=== PATIENT | male | born 1990 | race Caucasian/White ===

== ENCOUNTER 2023-04-21 20:58 | Emergency (ER) | payer MEDICARE, MEDICAID ==
[~2023-04-21] VITALS: Ht 180.3 cm; Wt 91.0 kg
[2023-04-21] MEDS ORDERED: IBUPROFEN 600MG TABLET PO STA (22:02)
[2023-04-21 23:06] LABS: BASOPHILS % 0.4 % (0.0-2.0); HEMATOCRIT. 40.1 % (42.0-52.0); HEMOGLOBIN. 13.1 g/dL (14.0-18.0); MEAN CORPUSCULAR HEMOGLOBIN 27.2 pg (28.0-32.0); MEAN CORPUSCULAR VOLUME 83.2 fL (80.0-94.0); MEAN PLATELET VOLUME 7.6 fl (7.4-10.4); MONOCYTES % 7.4 % (2.0-8.0); NEUTROPHILS % 56.2 % (40.0-76.0); PLATELET 322 x1000/uL (130-400); RED BLOOD CELL COUNT 4.82 mill/uL (4.7-6.1); RED CELL DISTRIBUTION WIDTH 14.4 % (11.6-14.6)
[2023-04-21 23:11] LABS: CHLORIDE 109 mEq/L (98-107)
[2023-04-21 23:16] LABS: PROTHROMBIN TIME 10.5 sec (9.6-11.0)
[2023-04-22 05:00] VITALS: BP 120/80
== END 2023-04-22 05:35 | disposition home or self-care (01) ==
LOC: ER 20:58
DX: R07.89 Other chest pain (principal); R11.10 Vomiting, unspecified; F20.9 Schizophrenia, unspecified
CPT/HCPCS: 36415; 71045; 74176; 80053; 84484; 85025; 93005; 99285

== ENCOUNTER 2023-05-08 21:40 | Emergency (ER) | payer MEDICARE, MEDICAID ==
[~2023-05-08] VITALS: Ht 180.3 cm; Wt 111.0 kg
[2023-05-08 21:42] VITALS: BP 128/72; PULSE 88; RESP 18; TEMP 98.3; O2SAT 100
== END 2023-05-08 23:29 | disposition home or self-care (01) ==
LOC: ER 21:40
DX: F32.9 Major depressive disorder, single episode, unspecified (principal); Z86.59 Personal history of other mental and behavioral disorders
CPT/HCPCS: 99283

== ENCOUNTER 2023-05-10 21:07 | Emergency (ER) | payer MEDICARE, MEDICAID ==
[~2023-05-10] VITALS: Ht 180.3 cm; Wt 110.0 kg
[2023-05-10 21:17] VITALS: BP 121/81; PULSE 100; RESP 18; TEMP 98.5; O2SAT 97
[2023-05-10] MEDS ORDERED: NAPR-681 MT (22:22)
== END 2023-05-10 22:33 | disposition home or self-care (01) ==
LOC: ER 21:07
DX: M25.571 Pain in right ankle and joints of right foot (principal); F41.9 Anxiety disorder, unspecified; F32.9 Major depressive disorder, single episode, unspecified; F20.9 Schizophrenia, unspecified
CPT/HCPCS: 73600; 73620; 99284

== ENCOUNTER 2023-05-17 03:06 | Emergency (ER) | payer MEDICARE, MEDICAID ==
[~2023-05-17] VITALS: Ht 172.7 cm; Wt 95.0 kg
[~2023-05-17 03:06] MED LIST: NAPR-681 MT
[2023-05-17 03:10] VITALS: O2SAT 98
[2023-05-17 03:33] LABS: CLARITY URINE CLEAR (CLEAR); COLOR URINE YELLOW (YELLOW); KETONES URINE NEGATIVE (NEGATIVE); LEUKOCYTE ESTERASE URINE NEGATIVE (NEGATIVE); NITRITE URINE NEGATIVE (NEGATIVE); OCCULT BLOOD URINE NEGATIVE (NEGATIVE); PH URINE 6.5 (4.5-8.0); PROTEIN URINE NEGATIVE (NEGATIVE); SPECIFIC GRAVITY URINE 1.014 (1.005-1.030)
[2023-05-17 03:46] LABS: *AMPHETAMINES SCREEN URINE NEGATIVE (NEGATIVE); *BARBITURATES SCREEN URINE NEGATIVE (NEGATIVE); *BENZODIAZEPINES SCREEN URINE NEGATIVE (NEGATIVE); *COCAINE SCREEN URINE NEGATIVE (NEGATIVE); CANNABINOID URINE SCREEN NEGATIVE (NEGATIVE); METHADONE URINE SCREEN NEGATIVE (NEGATIVE); OPIATES URINE SCREEN NEGATIVE (NEGATIVE); PHENCYCLIDINE URINE SCREEN NEGATIVE (NEGATIVE)
[2023-05-17 03:55] LABS: BASOPHILS % 0.4 % (0.0-2.0); EOSINOPHILS % 5.7 % (0.0-5.0); HEMATOCRIT. 38.5 % (42.0-52.0); HEMOGLOBIN. 12.5 g/dL (14.0-18.0); LYMPHOCYTES % 27.6 % (20.0-50.0); MEAN CORPUSCULAR HEMOGLOBIN 26.9 pg (28.0-32.0); MEAN CORPUSCULAR VOLUME 82.8 fL (80.0-94.0); MEAN PLATELET VOLUME 7.4 fl (7.4-10.4); MONOCYTES % 8.5 % (2.0-8.0); NEUTROPHILS % 57.8 % (40.0-76.0); PLATELET 314 x1000/uL (130-400); RED BLOOD CELL COUNT 4.65 mill/uL (4.7-6.1); RED CELL DISTRIBUTION WIDTH 14.7 % (11.6-14.6)
[2023-05-17 04:06] LABS: CHLORIDE 109 mEq/L (98-107)
[2023-05-17 04:13] LABS: ETHANOL BLOOD < 10 mg/dL (-10)
[2023-05-17 11:50] VITALS: BP 123/60; PULSE 69; RESP 18; TEMP 98.1
== END 2023-05-17 11:59 | disposition home or self-care (01) ==
LOC: ER 03:30
DX: R45.851 Suicidal ideations (principal); Z20.822 Contact with and (suspected) exposure to COVID-19; Z86.59 Personal history of other mental and behavioral disorders
CPT/HCPCS: 80053; 80305; 81003; 80307; 80329; 80320; 85025; 36415; 99285; 87426; C9803; G0480

== ENCOUNTER 2023-05-20 01:23 | Emergency (ER) | payer MEDICARE, MEDICAID ==
[~2023-05-20] VITALS: Ht 172.7 cm; Wt 80.0 kg
[2023-05-20 01:25] VITALS: O2SAT 98
[2023-05-20 04:31] LABS: HEMATOCRIT. 36.6 % (42.0-52.0); HEMOGLOBIN. 12.2 g/dL (14.0-18.0); MEAN CORPUSCULAR HEMOGLOBIN 27.8 pg (28.0-32.0); MEAN CORPUSCULAR VOLUME 83.7 fL (80.0-94.0); MEAN PLATELET VOLUME 7.5 fl (7.4-10.4); PLATELET 274 x1000/uL (130-400); RED BLOOD CELL COUNT 4.37 mill/uL (4.7-6.1); RED CELL DISTRIBUTION WIDTH 14.8 % (11.6-14.6)
[2023-05-20 04:47] LABS: CHLORIDE 109 mEq/L (98-107)
[2023-05-20 04:52] LABS: ETHANOL BLOOD < 10 mg/dL (-10)
[2023-05-20 05:27] LABS: *AMPHETAMINES SCREEN URINE NEGATIVE (NEGATIVE); *BARBITURATES SCREEN URINE NEGATIVE (NEGATIVE); *BENZODIAZEPINES SCREEN URINE NEGATIVE (NEGATIVE); *COCAINE SCREEN URINE NEGATIVE (NEGATIVE); CANNABINOID URINE SCREEN NEGATIVE (NEGATIVE); METHADONE URINE SCREEN NEGATIVE (NEGATIVE); OPIATES URINE SCREEN NEGATIVE (NEGATIVE); PHENCYCLIDINE URINE SCREEN NEGATIVE (NEGATIVE)
[2023-05-20 05:29] LABS: PLATELET ESTIMATE NORMAL
[2023-05-20 19:56] VITALS: BP 121/90; PULSE 78; RESP 18; TEMP 97.9
== END 2023-05-20 20:14 | disposition short-term general hospital (02) ==
LOC: ER 01:27
DX: R45.851 Suicidal ideations (principal); F41.9 Anxiety disorder, unspecified; F31.9 Bipolar disorder, unspecified; F20.9 Schizophrenia, unspecified; Z20.822 Contact with and (suspected) exposure to COVID-19
CPT/HCPCS: 80305; 80048; 80307; 80329; 80320; 85025; 36415; 99285; 87426; C9803; G0480

== ENCOUNTER 2023-05-29 04:37 | Emergency (ER) | payer MEDICARE, MEDICAID ==
[~2023-05-29] VITALS: Ht 170.2 cm; Wt 79.0 kg
[2023-05-29 04:43] VITALS: O2SAT 100
[2023-05-29] MEDS ORDERED: MECLIZINE 12.5MG TABLET PO ONE (05:45)
[2023-05-29] MEDS ORDERED: IBUPROFEN 400MG TABLET PO ONE (05:45)
[2023-05-29 06:11] LABS: HEMATOCRIT 37.4 % (42.0-52.0); HEMOGLOBIN 12.4 g/dL (14.0-18.0); MEAN CORPUSCULAR HEMOGLOBIN 27.6 pg (28.0-32.0); MEAN CORPUSCULAR VOLUME 83.5 fL (80.0-94.0); PLATELET 311 x1000/uL (130-400); RED BLOOD CELL COUNT 4.48 mill/uL (4.7-6.1); RED CELL DISTRIBUTION WIDTH 14.9 % (11.6-14.6)
[2023-05-29 06:32] VITALS: BP 138/72
[2023-05-29 06:36] LABS: CHLORIDE 111 mEq/L (98-107)
[2023-05-29 07:10] VITALS: PULSE 74; RESP 16; TEMP 98.1
== END 2023-05-29 07:10 | disposition home or self-care (01) ==
LOC: ER 04:37
DX: R42 Dizziness and giddiness (principal); Z86.59 Personal history of other mental and behavioral disorders
CPT/HCPCS: 99283; 80053; 85027; 36415; J8597

== ENCOUNTER 2023-05-31 01:47 | Emergency (ER) | payer MEDICARE, MEDICAID ==
[~2023-05-31] VITALS: Ht 177.8 cm; Wt 90.0 kg
[2023-05-31 01:50] VITALS: BP 122/86; O2SAT 100
[2023-05-31 02:47] VITALS: PULSE 86; RESP 16; TEMP 98.5
== END 2023-05-31 02:47 | disposition home or self-care (01) ==
LOC: ER 02:34
DX: Z00.00 Encounter for general adult medical examination without abnormal findings (principal); Z86.59 Personal history of other mental and behavioral disorders
CPT/HCPCS: 99283

== ENCOUNTER 2023-06-14 21:01 | Emergency (ER) | payer MEDICARE, MEDICAID ==
[~2023-06-14] VITALS: Ht 180.3 cm; Wt 115.7 kg
[2023-06-14 21:16] VITALS: O2SAT 99
[2023-06-15] MEDS ORDERED: ACETAMINOPHEN 325MG TABLET PO ONE (01:00)
[2023-06-15 01:40] VITALS: BP 114/67; PULSE 89; RESP 17; TEMP 98.2
== END 2023-06-15 01:41 | disposition home or self-care (01) ==
LOC: ER 21:01
DX: S09.90XA Unspecified injury of head, initial encounter (principal); F41.9 Anxiety disorder, unspecified; F31.9 Bipolar disorder, unspecified; F20.9 Schizophrenia, unspecified; X58.XXXA Exposure to other specified factors, initial encounter; Y93.89 Activity, other specified; Y92.89 Other specified places as the place of occurrence of the external cause; Y99.8 Other external cause status
CPT/HCPCS: 99281

== ENCOUNTER 2023-07-01 17:51 | Emergency (ER) | payer MEDICARE, MEDICAID ==
[~2023-07-01] VITALS: Ht 177.8 cm; Wt 104.0 kg
[2023-07-01 18:38] VITALS: O2SAT 98
[2023-07-01] MEDS ORDERED: ACET-2708 MT (19:19)
[2023-07-01] MEDS ORDERED: ACETAMINOPHEN 325MG TABLET PO ONE (19:30)
[2023-07-01 19:43] VITALS: BP 120/80; PULSE 86; RESP 20; TEMP 98.2
== END 2023-07-01 19:51 | disposition home or self-care (01) ==
LOC: ER 18:26
DX: M25.561 Pain in right knee (principal); F41.9 Anxiety disorder, unspecified; F31.9 Bipolar disorder, unspecified; F20.9 Schizophrenia, unspecified
CPT/HCPCS: 99281; 99282

== ENCOUNTER 2023-07-09 18:06 | Emergency (ER) | payer MEDICARE, MEDICAID ==
[~2023-07-09] VITALS: Ht 180.3 cm; Wt 115.7 kg
[~2023-07-09 18:06] MED LIST changes: +ACET-2708 MT
[2023-07-09 18:45] VITALS: BP 125/87; PULSE 83; RESP 16; TEMP 98.2; O2SAT 98
[2023-07-09] MEDS ORDERED: KETOROLAC 30MG/ML VIAL IM ONE (20:00)
[2023-07-09] MEDS ORDERED: GUAI-824 MT (20:01)
[2023-07-09] MEDS ORDERED: NAPR-681 MT (20:01)
== END 2023-07-09 21:00 | disposition home or self-care (01) ==
LOC: ER 18:06
DX: B34.9 Viral infection, unspecified (principal); L53.9 Erythematous condition, unspecified; F31.9 Bipolar disorder, unspecified; F41.8 Other specified anxiety disorders; F20.9 Schizophrenia, unspecified; Z20.822 Contact with and (suspected) exposure to COVID-19
CPT/HCPCS: 99283; 87426; J1885; C9803

== ENCOUNTER 2023-07-18 23:04 | Emergency (ER) | payer MEDICARE, MEDICAID ==
[~2023-07-18] VITALS: Ht 180.3 cm; Wt 82.0 kg
[~2023-07-18 23:04] MED LIST changes: +GUAI-824 MT
[2023-07-18 23:08] VITALS: O2SAT 95
[2023-07-18] MEDS ORDERED: SODIUM CHLORIDE 0.9% 1,000 ML IV ONE (23:45)
[2023-07-19 00:02] LABS: HEMATOCRIT. 36.6 % (42.0-52.0)
[2023-07-19 00:07] LABS: CHLORIDE 106 mEq/L (98-107); INDEX HEMOLYSI 1 (1-3); INDEX ICTERIC 1 (1-4); INDEX LIPEMIC 1 (1-3); POTASSIUM 4.1 mEq/L (3.5-5.1); SODIUM 140 mEq/L (136-145)
[2023-07-19 00:08] LABS: BASOPHILS % 0.5 % (0.0-2.0); EOSINOPHILS % 7.9 % (0.0-5.0); HEMOGLOBIN. 12.1 g/dL (14.0-18.0); LYMPHOCYTES % 30.4 % (20.0-50.0); MEAN CORPUSCULAR HEMOGLOBIN 27.6 pg (28.0-32.0); MEAN CORPUSCULAR HGB CONC 33.2 g/dL (31.0-37.0); MEAN CORPUSCULAR VOLUME 83.3 fL (80.0-94.0); MEAN PLATELET VOLUME 7.4 fl (7.4-10.4); MONOCYTES % 9.1 % (2.0-8.0); NEUTROPHILS % 52.1 % (40.0-76.0); PLATELET 283 x1000/uL (130-400); RED BLOOD CELL COUNT 4.39 mill/uL (4.7-6.1); RED CELL DISTRIBUTION WIDTH 14.2 % (11.6-14.6); WHITE BLOOD COUNT 10.9 x1000/uL (4.5-11.0)
[2023-07-19 00:15] LABS: ALANINE AMINOTRANSFERASE 35 IU/L (13-61); ALBUMIN 3.7 g/dL (3.4-5.0); ASPARTATE AMINOTRANSFERASE 20 IU/L (15-37); BILIRUBIN TOTAL 0.2 mg/dL (0.1-1.0); CALCIUM 9.2 mg/dL (8.5-10.1); CARBON DIOXIDE 27 mEq/L (21-32); CREATININE 0.9 mg/dL (0.6-1.3); GLUCOSE 102 mg/dL (70-105); PROTEIN TOTAL 7.8 g/dL (6.0-8.3); UREA NITROGEN BLOOD 16 mg/dL (7-21)
[2023-07-19 00:48] LABS: DIFFERENTIAL COMMENT 1
[2023-07-19 01:46] VITALS: BP 122/79; PULSE 89; RESP 20; TEMP 98.3
== END 2023-07-19 01:47 | disposition home or self-care (01) ==
LOC: ER 23:04
DX: R10.9 Unspecified abdominal pain (principal); F41.9 Anxiety disorder, unspecified; F31.9 Bipolar disorder, unspecified; F20.9 Schizophrenia, unspecified
CPT/HCPCS: 99283; 80053; 83690; 85025; 36415; 96360; J7030

== ENCOUNTER 2023-07-23 18:37 | Emergency (ER) | payer MEDICARE, MEDICAID ==
[~2023-07-23] VITALS: Ht 180.3 cm; Wt 108.9 kg
[2023-07-23 19:14] VITALS: BP 129/77; O2SAT 96
[2023-07-23] MEDS ORDERED: ASPIRIN 81MG TABLET PO ONE (21:15)
[2023-07-23 21:32] LABS: BASOPHILS % 0.3 % (0.0-2.0); EOSINOPHILS % 7.4 % (0.0-5.0); HEMATOCRIT. 41.7 % (42.0-52.0); HEMOGLOBIN. 13.8 g/dL (14.0-18.0); LYMPHOCYTES % 22.9 % (20.0-50.0); MEAN CORPUSCULAR HGB CONC 33.2 g/dL (31.0-37.0); MEAN CORPUSCULAR VOLUME 84.3 fL (80.0-94.0); MEAN PLATELET VOLUME 7.3 fl (7.4-10.4); MONOCYTES % 7.6 % (2.0-8.0); NEUTROPHILS % 61.8 % (40.0-76.0); PLATELET 331 x1000/uL (130-400); RED BLOOD CELL COUNT 4.94 mill/uL (4.7-6.1); RED CELL DISTRIBUTION WIDTH 14.1 % (11.6-14.6); WHITE BLOOD COUNT 11.4 x1000/uL (4.5-11.0)
[2023-07-23 21:41] LABS: CHLORIDE 107 mEq/L (98-107); INDEX HEMOLYSI 1 (1-3); INDEX ICTERIC 1 (1-4); INDEX LIPEMIC 1 (1-3); POTASSIUM 4.1 mEq/L (3.5-5.1); SODIUM 139 mEq/L (136-145)
[2023-07-23 21:50] LABS: ALANINE AMINOTRANSFERASE 36 IU/L (13-61); ASPARTATE AMINOTRANSFERASE 18 IU/L (15-37); BILIRUBIN TOTAL 0.2 mg/dL (0.1-1.0); CALCIUM 9.7 mg/dL (8.5-10.1); CARBON DIOXIDE 27 mEq/L (21-32); CREATININE 0.9 mg/dL (0.6-1.3); GLUCOSE 98 mg/dL (70-105); PROTEIN TOTAL 8.7 g/dL (6.0-8.3); TROPONIN I HIGH SENSITIVITY 6 ng/L (<78); UREA NITROGEN BLOOD 13 mg/dL (7-21)
[2023-07-24 00:40] LABS: TROPONIN I HIGH SENSITIVITY 5 ng/L (<78)
[2023-07-24 01:14] VITALS: PULSE 81; RESP 16; TEMP 98.5
== END 2023-07-24 01:15 | disposition home or self-care (01) ==
LOC: ER 18:37
DX: R07.89 Other chest pain (principal); M25.561 Pain in right knee; F41.9 Anxiety disorder, unspecified; F31.9 Bipolar disorder, unspecified; F20.9 Schizophrenia, unspecified
CPT/HCPCS: 36415; 71045; 73560; 80053; 84484; 85025; 85379; 99284

== ENCOUNTER 2023-07-29 19:15 | Emergency (ER) | payer MEDICARE, MEDICAID ==
[~2023-07-29] VITALS: Ht 177.8 cm; Wt 113.1 kg
[2023-07-29 19:25] VITALS: TEMP 98.4; O2SAT 98
[2023-07-29] MEDS ORDERED: IBUP-2029 MT (22:12)
[2023-07-29] MEDS ORDERED: IBUPROFEN 600MG TABLET PO ONE (22:15)
[2023-07-29 22:24] VITALS: BP 134/86; PULSE 98; RESP 18
== END 2023-07-29 22:50 | disposition home or self-care (01) ==
LOC: ER 19:15
DX: M54.2 Cervicalgia (principal); F41.9 Anxiety disorder, unspecified; F31.9 Bipolar disorder, unspecified; F20.9 Schizophrenia, unspecified
CPT/HCPCS: 99282

== ENCOUNTER 2023-08-25 15:35 | Emergency (ER) | payer MEDICARE, MEDICAID ==
[~2023-08-25] VITALS: Ht 182.9 cm; Wt 113.0 kg
[~2023-08-25 15:35] MED LIST changes: +IBUP-2029 MT
[2023-08-25 15:48] VITALS: TEMP 98; O2SAT 96
[2023-08-25 18:21] VITALS: BP 132/75; PULSE 82; RESP 20
[2023-08-25] MEDS ORDERED: IBUPROFEN 600MG TABLET PO STA (18:21)
[2023-08-25] MEDS ORDERED: AMOX1TAB16 MT (18:32)
[2023-08-25] MEDS ORDERED: IBUP-2029 MT (18:32)
[2023-08-26] MEDS ORDERED: TRAM50TA3 MT ×2 (22:06→22:16)
== END 2023-08-25 19:42 | disposition home or self-care (01) ==
LOC: ER 15:35
DX: K04.7 Periapical abscess without sinus (principal); K02.9 Dental caries, unspecified; F31.9 Bipolar disorder, unspecified; F20.9 Schizophrenia, unspecified
CPT/HCPCS: 99283

== ENCOUNTER 2023-08-26 18:12 | Emergency (ER) | payer MEDICARE, MEDICAID ==
[~2023-08-26] VITALS: Ht 180.3 cm; Wt 118.0 kg
[~2023-08-26 18:12] MED LIST changes: +AMOX1TAB16 MT
[2023-08-26 18:57] VITALS: BP 142/94; RESP 18; TEMP 98; O2SAT 97
[2023-08-26 19:06] VITALS: PULSE 70
[2023-08-26] MEDS ORDERED: TRAM50TA3 MT ×2 (22:06→22:16)
[2023-08-26] MEDS ORDERED: TRAMADOL 50MG TABLET PO ONE (22:15)
[2023-08-26] MEDS ORDERED: TRAMADOL 50MG TABLET PO NR (22:30)
== END 2023-08-26 23:01 | disposition home or self-care (01) ==
LOC: ER 18:12
DX: K02.9 Dental caries, unspecified (principal); F20.9 Schizophrenia, unspecified; F31.9 Bipolar disorder, unspecified
CPT/HCPCS: 99283

== ENCOUNTER 2023-09-03 19:01 | Emergency (ER) | payer MEDICARE, MEDICAID ==
[~2023-09-03] VITALS: Ht 180.3 cm; Wt 110.0 kg
[~2023-09-03 19:01] MED LIST changes: +TRAM50TA3 MT
[2023-09-03 19:18] VITALS: BP 125/85; PULSE 96; RESP 18; TEMP 98.2; O2SAT 96
[2023-09-05] MEDS ORDERED: ASPI-740 PO (15:44)
== END 2023-09-04 01:14 | disposition left against medical advice (07) ==
LOC: ER 19:01
DX: R51.9 Headache, unspecified (principal); Z53.21 Procedure and treatment not carried out due to patient leaving prior to being seen by health care provider
CPT/HCPCS: 99281

== ENCOUNTER 2023-09-05 12:34 | Emergency (ER) | payer MEDICARE, MEDICAID ==
[~2023-09-05] VITALS: Ht 180.3 cm; Wt 110.0 kg
[2023-09-05 13:07] VITALS: O2SAT 99
[2023-09-05] MEDS ORDERED: KETOROLAC 30MG/ML VIAL IM ONE (14:45)
[2023-09-05] MEDS ORDERED: ASPI-740 PO (15:44)
[2023-09-05] MEDS ORDERED: KETOROLAC 30MG/ML VIAL IM NR (17:15)
[2023-09-05 18:20] VITALS: BP 130/71; PULSE 88; RESP 18; TEMP 98.2
== END 2023-09-05 18:23 | disposition home or self-care (01) ==
LOC: ER 12:34
DX: R51.9 Headache, unspecified (principal); F41.9 Anxiety disorder, unspecified; F31.9 Bipolar disorder, unspecified; F20.9 Schizophrenia, unspecified
CPT/HCPCS: 99283; 96372; J1885

== ENCOUNTER 2023-09-11 19:38 | Emergency (ER) | payer MEDICARE, MEDICAID ==
[~2023-09-11] VITALS: Ht 177.8 cm; Wt 113.5 kg
[~2023-09-11 19:38] MED LIST changes: +ASPI-740 PO
[2023-09-11 19:51] VITALS: O2SAT 97
[2023-09-11 20:30] VITALS: BP 117/22; PULSE 91; RESP 17; TEMP 98.2
[2023-09-11 20:41] LABS: BASOPHILS % 0.5 % (0.0-2.0); EOSINOPHILS % 4.7 % (0.0-5.0); HEMATOCRIT. 37.7 % (42.0-52.0); HEMOGLOBIN. 12.3 g/dL (14.0-18.0); LYMPHOCYTES % 27.9 % (20.0-50.0); MEAN CORPUSCULAR HEMOGLOBIN 27.6 pg (28.0-32.0); MEAN CORPUSCULAR HGB CONC 32.7 g/dL (31.0-37.0); MEAN CORPUSCULAR VOLUME 84.6 fL (80.0-94.0); MEAN PLATELET VOLUME 7.2 fl (7.4-10.4); MONOCYTES % 8.2 % (2.0-8.0); NEUTROPHILS % 58.7 % (40.0-76.0); PLATELET 309 x1000/uL (130-400); RED BLOOD CELL COUNT 4.46 mill/uL (4.7-6.1); RED CELL DISTRIBUTION WIDTH 13.8 % (11.6-14.6); WHITE BLOOD COUNT 13.9 x1000/uL (4.5-11.0)
[2023-09-11 20:43] LABS: CLARITY URINE CLEAR (CLEAR); COLOR URINE YELLOW (YELLOW); GLUCOSE URINE NEGATIVE (NEGATIVE); KETONES URINE NEGATIVE (NEGATIVE); LEUKOCYTE ESTERASE URINE NEGATIVE (NEGATIVE); NITRITE URINE NEGATIVE (NEGATIVE); OCCULT BLOOD URINE NEGATIVE (NEGATIVE); PROTEIN URINE NEGATIVE (NEGATIVE); SPECIFIC GRAVITY URINE 1.008 (1.005-1.030); UROBILINOGEN URINE 0.2 E.U./dL (0.2-1.0)
[2023-09-11 20:48] LABS: CHLORIDE 109 mEq/L (98-107); INDEX HEMOLYSI 1 (1-3); INDEX ICTERIC 1 (1-4); INDEX LIPEMIC 1 (1-3); POTASSIUM 4.2 mEq/L (3.5-5.1); SODIUM 141 mEq/L (136-145)
[2023-09-11 20:55] LABS: ACETAMINOPHEN <2 ug/mL ug/mL (10-30); ALANINE AMINOTRANSFERASE 26 IU/L (13-61); ALBUMIN 3.7 g/dL (3.4-5.0); ASPARTATE AMINOTRANSFERASE 14 IU/L (15-37); BILIRUBIN TOTAL 0.2 mg/dL (0.1-1.0); CALCIUM 9.3 mg/dL (8.5-10.1); CARBON DIOXIDE 30 mEq/L (21-32); CREATININE 0.9 mg/dL (0.6-1.3); ETHANOL BLOOD < 10 mg/dL (<10); GLUCOSE 97 mg/dL (70-105); UREA NITROGEN BLOOD 14 mg/dL (7-21)
[2023-09-11 20:58] LABS: *AMPHETAMINES SCREEN URINE NEGATIVE (NEGATIVE); *BARBITURATES SCREEN URINE NEGATIVE (NEGATIVE); *BENZODIAZEPINES SCREEN URINE NEGATIVE (NEGATIVE); *COCAINE SCREEN URINE NEGATIVE (NEGATIVE); CANNABINOID URINE SCREEN NEGATIVE (NEGATIVE); ECSTASY MDMA SCREEN URINE NEGATIVE (NEGATIVE); OPIATES URINE SCREEN NEGATIVE (NEGATIVE); PHENCYCLIDINE URINE SCREEN NEGATIVE (NEGATIVE)
== END 2023-09-12 11:49 | disposition home or self-care (01) ==
LOC: ER 21:03
DX: R45.851 Suicidal ideations (principal); Z20.822 Contact with and (suspected) exposure to COVID-19; Z86.59 Personal history of other mental and behavioral disorders; Z79.899 Other long term (current) drug therapy
CPT/HCPCS: 80053; 80305; 81003; 80307; 80329; 80320; 85025; 36415; 99284; 87426; C9803; 99283; G0480

== ENCOUNTER 2023-09-20 14:09 | Emergency (ER) | payer MEDICARE, MEDICAID ==
[~2023-09-20] VITALS: Ht 177.8 cm; Wt 114.0 kg
[2023-09-20 14:20] VITALS: O2SAT 97
[2023-09-20 14:30] VITALS: TEMP 98.6
[2023-09-20] MEDS ORDERED: ACETAMINOPHEN 325MG TABLET PO ONE (14:30)
[2023-09-20 15:32] VITALS: BP 130/84; PULSE 78; RESP 20
== END 2023-09-20 15:32 | disposition home or self-care (01) ==
LOC: ER 14:09
DX: R68.84 Jaw pain (principal); Z86.59 Personal history of other mental and behavioral disorders
CPT/HCPCS: 99282

== ENCOUNTER 2023-10-02 18:08 | Emergency (ER) | payer MEDICARE, MEDICAID ==
[~2023-10-02] VITALS: Ht 175.3 cm; Wt 109.0 kg
[2023-10-02 18:31] VITALS: O2SAT 95
[2023-10-02] MEDS ORDERED: ACETAMINOPHEN 325MG TABLET PO ONE (18:45)
[2023-10-02] MEDS ORDERED: KETOROLAC 60MG/2ML VIAL IM ONE (18:45)
[2023-10-02] MEDS ORDERED: NAPR-681 MT (18:53)
[2023-10-02 19:45] VITALS: BP 131/86
[2023-10-02 19:46] VITALS: PULSE 90; RESP 18; TEMP 98.5
== END 2023-10-02 19:48 | disposition home or self-care (01) ==
LOC: ER 18:08
DX: M25.561 Pain in right knee (principal); M25.571 Pain in right ankle and joints of right foot; F41.9 Anxiety disorder, unspecified; F31.9 Bipolar disorder, unspecified; F20.9 Schizophrenia, unspecified
CPT/HCPCS: 99284; 73560; 73600; 96372; J1885

== ENCOUNTER 2023-11-14 11:08 | Emergency (ER) | payer MEDICARE, MEDICAID ==
[~2023-11-14] VITALS: Ht 180.3 cm; Wt 113.0 kg
[2023-11-14 11:19] VITALS: BP 111/74; RESP 16; TEMP 98.8; O2SAT 99
[2023-11-14 11:20] VITALS: PULSE 88
[2023-11-14 12:54] LABS: CLARITY URINE CLEAR (CLEAR); COLOR URINE YELLOW (YELLOW); GLUCOSE URINE NEGATIVE (NEGATIVE); KETONES URINE NEGATIVE (NEGATIVE); LEUKOCYTE ESTERASE URINE NEGATIVE (NEGATIVE); NITRITE URINE NEGATIVE (NEGATIVE); OCCULT BLOOD URINE NEGATIVE (NEGATIVE); PROTEIN URINE NEGATIVE (NEGATIVE); SPECIFIC GRAVITY URINE 1.012 (1.005-1.030); UROBILINOGEN URINE 0.2 E.U./dL (0.2-1.0)
[2023-11-14 14:16] LABS: *AMPHETAMINES SCREEN URINE NEGATIVE (NEGATIVE); *BARBITURATES SCREEN URINE NEGATIVE (NEGATIVE); *BENZODIAZEPINES SCREEN URINE NEGATIVE (NEGATIVE); *COCAINE SCREEN URINE NEGATIVE (NEGATIVE); CANNABINOID URINE SCREEN NEGATIVE (NEGATIVE); ECSTASY MDMA SCREEN URINE NEGATIVE (NEGATIVE); METHADONE URINE SCREEN Neg (NEGATIVE); OPIATES URINE SCREEN NEGATIVE (NEGATIVE); PHENCYCLIDINE URINE SCREEN NEGATIVE (NEGATIVE)
== END 2023-11-14 20:32 | disposition left against medical advice (07) ==
LOC: ER 11:18
DX: R45.851 Suicidal ideations (principal); Z86.59 Personal history of other mental and behavioral disorders
CPT/HCPCS: 80305; 81003; 99283

== ENCOUNTER 2023-11-14 20:21 | Emergency (ER) | payer MEDICARE, MEDICAID ==
[~2023-11-14] VITALS: Ht 175.3 cm; Wt 114.0 kg
[2023-11-14 20:46] VITALS: O2SAT 100
[2023-11-14 20:52] LABS: BASOPHILS % 0.4 % (0.0-2.0); EOSINOPHILS % 8.3 % (0.0-5.0); HEMATOCRIT. 37.4 % (42.0-52.0); HEMOGLOBIN. 12.7 g/dL (14.0-18.0); LYMPHOCYTES % 31.4 % (20.0-50.0); MEAN CORPUSCULAR HEMOGLOBIN 28.7 pg (28.0-32.0); MEAN CORPUSCULAR HGB CONC 33.9 g/dL (31.0-37.0); MEAN CORPUSCULAR VOLUME 84.6 fL (80.0-94.0); MONOCYTES % 13.9 % (2.0-8.0); PLATELET 275 x1000/uL (130-400); RED BLOOD CELL COUNT 4.42 mill/uL (4.7-6.1); RED CELL DISTRIBUTION WIDTH 13.4 % (11.6-14.6); WHITE BLOOD COUNT 7.7 x1000/uL (4.5-11.0)
[2023-11-14 21:08] LABS: ACETAMINOPHEN < 2 ug/mL (10-30); ALANINE AMINOTRANSFERASE 32 IU/L (10-49); ALBUMIN 4.3 g/dL (3.2-4.8); ASPARTATE AMINOTRANSFERASE 28 IU/L (<34); BILIRUBIN TOTAL 0.2 mg/dL (0.1-1.0); CALCIUM 9.2 mg/dL (8.7-10.4); CARBON DIOXIDE 29 mEq/L (21-32); CHLORIDE 106 mEq/L (98-107); CREATININE 0.9 mg/dL (0.6-1.3); GLUCOSE 94 mg/dL (70-105); POTASSIUM 4.1 mEq/L (3.5-5.1); PROTEIN TOTAL 8.2 g/dL (6.0-8.3); SODIUM 140 mEq/L (136-145); UREA NITROGEN BLOOD 14 mg/dL (9-23)
[2023-11-14 21:12] LABS: ETHANOL BLOOD < 10 mg/dL (<10)
[2023-11-14 21:28] LABS: CLARITY URINE CLEAR (CLEAR); COLOR URINE YELLOW (YELLOW); GLUCOSE URINE NEGATIVE (NEGATIVE); KETONES URINE NEGATIVE (NEGATIVE); LEUKOCYTE ESTERASE URINE NEGATIVE (NEGATIVE); NITRITE URINE NEGATIVE (NEGATIVE); OCCULT BLOOD URINE NEGATIVE (NEGATIVE); PROTEIN URINE NEGATIVE (NEGATIVE); SPECIFIC GRAVITY URINE 1.012 (1.005-1.030); UROBILINOGEN URINE 0.2 E.U./dL (0.2-1.0)
[2023-11-14 21:38] LABS: *AMPHETAMINES SCREEN URINE NEGATIVE (NEGATIVE); *BARBITURATES SCREEN URINE NEGATIVE (NEGATIVE); *BENZODIAZEPINES SCREEN URINE NEGATIVE (NEGATIVE); *COCAINE SCREEN URINE NEGATIVE (NEGATIVE); CANNABINOID URINE SCREEN NEGATIVE (NEGATIVE); ECSTASY MDMA SCREEN URINE NEGATIVE (NEGATIVE); METHADONE URINE SCREEN Neg (NEGATIVE); OPIATES URINE SCREEN NEGATIVE (NEGATIVE); PHENCYCLIDINE URINE SCREEN NEGATIVE (NEGATIVE)
[2023-11-15] MEDS ORDERED: QUETIAPINE FUMARATE 50MG TABLET PO SCH (09:45)
[2023-11-15 14:43] VITALS: BP 111/94; PULSE 81; RESP 18; TEMP 98.4
== END 2023-11-15 14:39 ==
LOC: ER 20:21
DX: R45.851 Suicidal ideations (principal); Z86.59 Personal history of other mental and behavioral disorders; Z20.822 Contact with and (suspected) exposure to COVID-19
CPT/HCPCS: 80053; 80305; 81003; 80307; 80329; 80320; 85025; 36415; 99285; 87426; C9803; G0480

== ENCOUNTER 2024-04-22 21:22 | Emergency (ER) | payer MEDICARE, MEDICAID ==
[~2024-04-22] VITALS: Ht 180.3 cm; Wt 114.0 kg
[2024-04-22 22:14] VITALS: O2SAT 96
[2024-04-23 00:13] VITALS: BP 123/85; PULSE 82; RESP 16; TEMP 98.4
== END 2024-04-23 00:16 | disposition home or self-care (01) ==
LOC: ER 21:22
DX: H61.21 Impacted cerumen, right ear (principal)
CPT/HCPCS: 69210; 99282; 99284

== ENCOUNTER 2024-06-12 18:14 | Emergency (ER) | payer MEDICARE, MEDICAID ==
[~2024-06-12] VITALS: Ht 180.3 cm; Wt 97.0 kg
[2024-06-12 18:24] VITALS: TEMP 98.1; O2SAT 100
[2024-06-12] MEDS ORDERED: IBUP-2030 MT (20:30)
[2024-06-12 21:49] VITALS: BP 112/80; PULSE 75; RESP 16
== END 2024-06-12 21:50 | disposition home or self-care (01) ==
LOC: ER 18:14
DX: M79.671 Pain in right foot (principal); Z79.899 Other long term (current) drug therapy
CPT/HCPCS: 73630; 99283

== ENCOUNTER 2024-07-22 13:08 | Emergency (ER) | payer MEDICAID, MEDICARE ==
[~2024-07-22] VITALS: Ht 180.3 cm; Wt 116.0 kg
[~2024-07-22 13:08] MED LIST changes: +IBUP-2030 MT
[2024-07-22 13:28] VITALS: O2SAT 97
[2024-07-22] MEDS ORDERED: BENZ200C52 MT (16:58)
[2024-07-22 18:14] VITALS: BP 117/79; PULSE 86; RESP 18; TEMP 36.55848; O2SAT 97
== END 2024-07-22 18:29 | disposition home or self-care (01) ==
LOC: ER 13:25
DX: B34.9 Viral infection, unspecified (principal); Z20.822 Contact with and (suspected) exposure to COVID-19; Z79.899 Other long term (current) drug therapy
CPT/HCPCS: 71045; 87426; 93005; 99285

== ENCOUNTER 2024-09-12 16:37 | Emergency (ER) | payer MEDICARE, MEDICAID ==
[~2024-09-12] VITALS: Ht 175.3 cm; Wt 104.3 kg
[~2024-09-12 16:37] MED LIST changes: +BENZ200C52 MT
[2024-09-12 16:52] VITALS: O2SAT 99
[2024-09-12] MEDS: KETOROLAC 30MG/ML VIAL IM STA (19:35)
[2024-09-12 20:14] VITALS: BP 138/88; PULSE 83; RESP 19; TEMP 36.66960; O2SAT 98
== END 2024-09-12 20:16 | disposition home or self-care (01) ==
LOC: ER 16:37
DX: M25.511 Pain in right shoulder (principal); F31.9 Bipolar disorder, unspecified; Z79.82 Long term (current) use of aspirin; Z79.1 Long term (current) use of non-steroidal anti-inflammatories (NSAID)
CPT/HCPCS: 99284; 71045; 73030; 73060; 96372; J1885

== ENCOUNTER 2024-09-30 12:42 | Emergency (ER) | payer MEDICARE, MEDICAID ==
[~2024-09-30] VITALS: Ht 177.8 cm; Wt 114.0 kg
[2024-09-30 12:52] VITALS: O2SAT 95
[2024-09-30 13:12] VITALS: BP 121/78; PULSE 84; RESP 18; TEMP 97.8; O2SAT 96
[2024-09-30 14:36] LABS: BASOPHILS % 0.7 % (0.0-2.0); EOSINOPHILS % 6.3 % (0.0-5.0); HEMATOCRIT. 39.6 % (42.0-52.0); HEMOGLOBIN. 12.6 g/dL (14.0-18.0); LYMPHOCYTES % 30.1 % (20.0-50.0); MEAN CORPUSCULAR HEMOGLOBIN 26.9 pg (28.0-32.0); MEAN CORPUSCULAR HGB CONC 31.8 g/dL (31.0-37.0); MEAN CORPUSCULAR VOLUME 84.5 fL (80.0-94.0); MEAN PLATELET VOLUME 7.1 fl (7.4-10.4); MONOCYTES % 6.5 % (2.0-8.0); NEUTROPHILS % 56.4 % (40.0-76.0); PLATELET 355 x1000/uL (130-400); RED BLOOD CELL COUNT 4.69 mill/uL (4.7-6.1); RED CELL DISTRIBUTION WIDTH 13.5 % (11.6-14.6); WHITE BLOOD COUNT 10.1 x1000/uL (4.5-11.0)
[2024-09-30 14:42] LABS: CARBON DIOXIDE 28 mEq/L (21-32); CHLORIDE 106 mEq/L (98-107); POTASSIUM 3.6 mEq/L (3.5-5.1); SODIUM 141 mEq/L (136-145)
[2024-09-30 14:43] LABS: CALCIUM 9.8 mg/dL (8.7-10.4)
[2024-09-30 14:47] LABS: GLUCOSE 92 mg/dL (70-105)
[2024-09-30 14:48] LABS: UREA NITROGEN BLOOD 15 mg/dL (9-23)
[2024-09-30 14:49] LABS: ALANINE AMINOTRANSFERASE 38 IU/L (10-49); ALBUMIN 4.6 g/dL (3.2-4.8); ASPARTATE AMINOTRANSFERASE 29 IU/L (<34)
[2024-09-30 14:50] LABS: BILIRUBIN TOTAL 0.3 mg/dL (0.1-1.0)
[2024-09-30 15:01] LABS: BILIRUBIN DIRECT < 0.1 mg/dL (<=3.0)
[2024-09-30] MEDS: DICYCLOMINE HCL 10MG CAPSULE PO ONE (15:02)
== END 2024-09-30 16:23 | disposition home or self-care (01) ==
LOC: ER 12:42
DX: R11.2 Nausea with vomiting, unspecified (principal); F31.9 Bipolar disorder, unspecified; Z79.899 Other long term (current) drug therapy
CPT/HCPCS: 36415; 74176; 80048; 80076; 85025; 99284